=== PATIENT | male | born 1945 | race Caucasian/White ===

== ENCOUNTER 2016-11-19 16:20 | Emergency (ER) | payer MEDICARE ==
[~2016-11-19] VITALS: Ht 185.4 cm; Wt 97.6 kg
[2016-11-19 16:28] VITALS: BP 130/79
[2016-11-19] MEDS ORDERED: METHOCARBAMOL 750 MG TABLET PO ONE (17:00)
[2016-11-19] MEDS ORDERED: KETOROLAC 30 MG/1 ML IM ONE (17:00)
[2016-11-19] MEDS ORDERED: ONDANSETRON ODT 4 MG PO ONE (17:00)
[2016-11-19] MEDS ORDERED: HYDROcodone/APAP 5/325 TABLET PO ONE (17:00)
[2016-11-19] MEDS ORDERED: METHOCARBAMOL 750 MG TABLET ONE (17:15)
[2016-11-19] MEDS ORDERED: ONDANSETRON ODT 4 MG ONE (17:15)
[2016-11-19] MEDS ORDERED: HYDROcodone/APAP 5/325 TABLET ONE (17:16)
[2016-11-19] MEDS ORDERED: KETOROLAC 30 MG/1 ML ONE (17:16)
== END 2016-11-19 18:47 | disposition home or self-care (01) ==
LOC: ED 18:40
DX: M54.31 Sciatica, right side (principal); R07.89 Other chest pain; I10 Essential (primary) hypertension
CPT/HCPCS: 71101; 81003; 96372; 99285; J1885; Q0162